=== PATIENT | male | born 2000 | race Caucasian/White ===

== ENCOUNTER 2022-08-21 00:16 | Emergency (ER) | payer MEDICAID ==
[~2022-08-21] VITALS: Ht 165.1 cm; Wt 91.6 kg
[2022-08-21 00:27] VITALS: BP 148/82
[2022-08-21 00:58] VITALS: BP 148/82
--- NOTE | 2022-08-21 00:58 | NUR ---
PATIENT BIB [facility] POLICE DEPT. PATIENT EXAMINED BY DR. BOONE. PATIENT MEDICALLY CLEARED AND RELEASED IN CUSTODY IN STABLE CONDITION. ORIGINAL PRE-BOOK FORM GIVEN TO OFFICER CONCEPCION.
== END 2022-08-21 00:58 ==
LOC: MED 00:16
DX: Z02.89 Encounter for other administrative examinations (principal)
CPT/HCPCS: 99283